=== PATIENT | male | born 1960 | race Caucasian/White ===

== ENCOUNTER 2022-01-09 21:26 | Emergency (ER) | payer OTHER ==
[~2022-01-09] VITALS: Ht 175.3 cm; Wt 72.0 kg
[2022-01-09 22:00] VITALS: BP 142/84
[2022-01-09] MEDS ORDERED: IBUPROFEN 400 MG TABLET. PO ONE (22:00)
[2022-01-09] MEDS ORDERED: AMOXICILLIN/K CLAV 875/125MG TABLET. PO ONE (22:00)
[2022-01-09] MEDS ORDERED: ACETAMINOPHEN 500 MG TABLET PO ONE (22:00)
[2022-01-09] MEDS ORDERED: DIPHTH,PERTUSS(ACELL),TET TOX 0.5 ML DISP.SYRIN. VAX IM ONE (22:30)
[2022-01-09] MEDS ORDERED: AMOX1TAB11 PO (22:31)
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
== END 2022-01-09 22:33 | disposition home or self-care (01) ==
LOC: ER 21:26
DX: S60.311A Abrasion of right thumb, initial encounter (principal); I10 Essential (primary) hypertension; E11.9 Type 2 diabetes mellitus without complications; Z88.0 Allergy status to penicillin; W50.3XXA Accidental bite by another person, initial encounter; Y93.89 Activity, other specified; Y92.89 Other specified places as the place of occurrence of the external cause; Y99.8 Other external cause status
CPT/HCPCS: 73130; 90471; 90715; 99284